=== PATIENT | male | born 1940 | race Hispanic/Latino ===

== ENCOUNTER 2020-05-15 11:24 | Observation (INO) | payer MEDICARE, MEDICAID ==
[2020-05-15 12:41] LABS: Bacteria/HPF None Seen HPF (None Seen); Bilirubin Negative (Negative); Blood, Urine 1+ (Negative); Clarity Clear (Clear); Glucose, Urine (Dipstick) Normal (Negative); Ketone, Urine Negative (Negative); Leukocyte Negative Leu/uL (Negative); Nitrite Negative (Negative); Protein, Urine (Dipstick) Negative (Neg-Trace); RBC/HPF 0-3 HPF (0-3); Specific Gravity, Urine 1.017 (1.002-1.036); Squamous Epithelial None Seen HPF (0-3); WBC/HPF 0-3 HPF (0-3); pH, Urine 6.5 (5.0-9.0)
[2020-05-15 12:44] LABS: #Lymphocytes 0.8 thou/uL (1.20-3.40); #Monocytes 0.3 thou/uL (0.11-0.59); #Neutrophils 2.9 thou/uL (1.40-6.50); %Basophils 0.2 % (0.0-1.0); %Eosinophils 0.5 % (0.0-10.0); %Lymphocytes 19.4 % (21.0-51.0); %Monocytes 7.9 % (0.0-10.0); %Neutrophils 71.9 % (42.0-75.0); Hemoglobin 16.8 g/dL (14.0-18.0); Mean Corpuscular HGB CONC 34.4 g/dL (32.0-36.0); Mean Corpuscular Hemoglobin 30.1 pg (27.0-31.0); Mean Corpuscular Volume 87.5 fL (78.0-98.0); Platelet Count 160 thou/uL (130-400); RBC Distribution Width 12.4 % (11.5-14.5); Red Blood Cell (RBC) Count 5.57 mill/uL (4.70-6.10)
[2020-05-15 12:51] LABS: INR-International Normal Ratio 1.1; Prothrombin Time 14.3 sec (12.0-14.7)
[2020-05-15 13:01] LABS: ALT (SGPT) 25 U/L (8-55); AST (SGOT) 18 U/L (5-34); Albumin 3.7 g/dL (3.4-4.8); Alkaline Phosphatase 97 U/L (40-110); Anion Gap 13 mmol/L (10-20); BUN (Urea Nitrogen) 10 mg/dL (8.4-25.7); Calc. Creatinine Clearance 0 mL/min (70-130); Calcium 8.4 mg/dL (7.8-10.44); Carbon Dioxide 20 mmol/L (23-31); Chloride 108 mmol/L (98-107); Estimated GFR-MDRD Greater than 90; Globulin 2.7 g/dL (2.4-3.5); Glucose 117 mg/dL (83-110); Lipase 17 U/L (8-78); Potassium 3.7 mmol/L (3.5-5.1); Protein, Total 6.4 g/dL (5.8-8.1); Sodium 137 mmol/L (136-145)
--- NOTE | 2020-05-15 13:20 | RAD ---
PORTABLE CHEST: HISTORY: Chest pain. FINDINGS: Heart size appears slightly enlarged. There are atherosclerotic changes of the aorta. Chronic lung changes are seen. No focal infiltrates. IMPRESSION: Chronic lung change. No acute process. POS: OFF
[2020-05-15] MEDS ORDERED: Iopamidol-370 76% 500 ML 1 ML ONE (14:02)
--- NOTE | 2020-05-15 14:59 | CT ---
CT ABDOMEN AND PELVIS PERFORMED WITH CONTRAST ENHANCEMENT: History: Abdominal pain for one week, left lower quadrant that radiates to the back. FINDINGS: There is some subsegmental atelectatic change in the left base. Some changes within the lingua which are probably chronic in nature. There are diffuse fatty changes to the liver. The spleen, pancreas, and gallbladder regions appear un remarkable. Right and left adrenal glands are normal in appearance. There is a 6.9 cm right renal cyst present. N o obstruction. There is no significant periaortic or mesenteric adenopathy. CT OF PELVIS PERFORMED WITH CONTRAST ENHANCEMENT: The appendix is difficult to visualize but appears unremarkable. No evidence of any diverticulitis or any definite diverticular disease. There is a paraumbilical hernia containing small bowel but no obs truction. Prostate is mildly prominent. No pelvic lymphadenopathy or mass. The spine shows mild arthritic change. The bones appear demineralized. IMPRESSION: 1. Fatty change of the liver. 2. Right renal cyst. 3. Small paraumbilical hernia, not associated with any obstruction. POS: OFF
[2020-05-15] MEDS ORDERED: Morphine 4 MG/ML VIAL ONE (15:03)
[2020-05-15] MEDS ORDERED: Aspirin Chewable 81 MG TAB ONE (15:04)
[2020-05-15] MEDS ORDERED: Ondansetron PF 4 MG/2 ML Vial ONE (15:04)
[2020-05-15] MEDS ORDERED: Senokot S 8.6-50 MG TAB PO PRN (15:39)
[2020-05-15] MEDS ORDERED: Acetaminophen 325 MG TAB PO PRN (15:39)
[2020-05-15] MEDS ORDERED: Nitroglycerin 0.4 MG TAB (25 Tab Bottle) SL PRN (16:34)
[2020-05-15 16:36] LABS: Cardiac Risk 4.8 (Less than 4.5)
--- NOTE | 2020-05-15 16:56 | HP ---
CHIEF COMPLAINT: Chest pain and abdominal pain. HISTORY OF PRESENT ILLNESS: A 79-year-old Bahraini-speaking only who is a poor historian with remote history of catheterization without stent placement, presenting with the chest pain. It is mostly on the left side. Overnight chest pain associated with some radiation to the neck and jaw. He also has some abdominal pain mostly on the left flank side. He has a remote history of stoma and unclear, he says that he has a cyst removed from that area a long time ago. He has some midabdominal scar. He had a cardiac cath roughly 6 years ago and no stent placed. His CT abdomen was quite unremarkable. He has a hernia that is reproducible and that has been taken care of by the ER physician. Otherwise, CT abdomen did not reveal any abnormality. His liver function test and lipase are in the normal range. The patient will be admitted for observation to rule out acute coronary syndrome and risk stratification with stress test. REVIEW OF SYSTEMS: Thirteen-point review of systems reviewed with the help of nurse who speaks [place]i. He does not have any recent fever, night sweats, or chills. No hemoptysis, hematemesis, dysuria, hematuria, or hematochezia. No headache or blurriness. He has currently no nausea or vomiting. His abdominal pain is mostly focused on the left flank side. SOCIAL HISTORY: Does not smoke or drink alcohol. FAMILY HISTORY: Noncontributory. MEDICATIONS: Not updated, but it appears he does not take any medications. PHYSICAL EXAMINATION: VITAL SIGNS: He is normotensive and afebrile. He is saturating in the upper 90s in room air. HEENT: Pupils are equal, round, and reactive to light. Anicteric. Mucous membranes are moist. CARDIOVASCULAR: Regular rate and rhythm without murmurs, rubs, or gallops. ABDOMEN: Protuberant, but soft and nontender. No rigidity. He has good abdominal sounds. He has a surgical scar in the mid abdominal area and scar on the left side, appears to be a stoma in the past. EXTREMITIES: Lower extremities without any pitting edema. No rash. LABORATORY DATA: CBC in the normal range except WBC of 4. INR is 1.1 creatinine. His LFTs are in the normal range. Lipase is 17. His BMP is also in the normal range. Troponin 0.01. Chest x-ray, negative for infiltrate. He also had a CT angio that was negative. EKG reviewed by me and it showed lateral T-wave inversions. IMPRESSION AND PLAN: This is a 79-year-old [place]i-speaking male with a history of coronary artery disease and cerebrovascular accident in the past, presenting with the followin. Chest pain. 2. Abdominal pain, mostly focused on the left flank side. 3. The patient will be ruled out for acute coronary syndrome. 4. Nuclear medicine stress test. Keep him overnight n.p.o. 5. We will follow up with a TSH, A1c, and lipid panel. 6. Aspirin and nitroglycerin p.r.n. 7. Left flank pain. UA shows no sign of any infection. He does have tamsulosin per the ER nurse and I will initiate that for now. 8. Rest of the management based on clinical course. His daughter is Roseanne at [phone]. Job ID: [id number] MTDD
[2020-05-15] MEDS ORDERED: Ketorolac Tromethamine 30 MG/ML VIAL ONE (17:27)
[2020-05-15 18:21] VITALS: BMI 29.9
[2020-05-16] MEDS ORDERED: Senokot S 8.6-50 MG TAB PO PRN (08:44)
[2020-05-16] MEDS ORDERED: FLU VACC QS2020-21(65YR UP)/PF 240 MCG/0.7 ML SYRINGE IM ONE (09:00)
[2020-05-16] MEDS ORDERED: Aspirin 81 mg Enteric Coated Tablet PO SCH ×2 (09:00)
[2020-05-16] MEDS ORDERED: Tamsulosin HCl 0.4 MG CAP PO SCH (09:00)
[2020-05-16] MEDS ORDERED: Temazepam 15 MG CAP PO PRN (11:33)
--- NOTE | 2020-05-16 11:33 | PDOC.HOSPP ---
- Subjective Encounter Date: 05/16/20 Encounter Time: 09:50 Subjective: Patient is Slovak-speaking only. 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 - Objective Vital Signs & Weight: Vital Signs (12 hours) Temp Pulse Resp BP Pulse Ox 05/16/20 07:40 97.8 F 58 L 16 150/69 H 94 L 05/16/20 04:00 97.9 F 60 16 128/62 95 05/16/20 03:00 97.9 F 60 16 128/62 95 Weight Weight 148 lb I&O: 05/15/20 05/16/20 05/17/20 06:59 06:59 06:59 Intake Total 480 Output Total 575 Balance -95 Result Diagrams: 05/15/20 12:25 05/15/20 12:25 Hospitalist ROS - Medication Medications: Active Medications Generic Name Dose Route Start Last Admin Trade Name Freq PRN Reason Stop Dose Admin Aspirin 81 mg 05/16/20 09:00 05/16/20 09:03 Aspirin 81 Mg Enteric Coated Tablet PO 81 mg DAILY GURVINDER Administration - Exam General Appearance: NAD, awake alert Eye: PERRL ENT: normocephalic atraumatic Neck: supple Heart: RRR Respiratory: CTAB, normal chest expansion Gastrointestinal: soft, normal bowel sounds Hosp A/P - Plan Chest pain with a history of coronary artery disease -trop x2 -ve; EKG with T wave inversions in the lateral leads. Stress pending - If negative then likely later in the day DC home. LDL 65 he can continue with his home statin. TSH in the normal range.
[2020-05-16] MEDS ORDERED: Nitroglycerin 0.4 MG TAB (25 Tab Bottle) SL PRN (11:45)
[2020-05-16] MEDS ORDERED: ADENOSINE 60 MG/20 ML VIAL ONE (12:42)
--- NOTE | 2020-05-16 15:00 | NM ---
Radionucleotide stress and rest myocardial perfusion scan with CT attenuation correction and SPECT im aging Left ventricular wall motion evaluation and ejection fraction HISTORY: Chest pain. FINDINGS: Adenosine protocol. Heterogeneous uptake of radiotracer throughout the left ventricular lars cardium. Moderate sized area of moderately to markedly diminished radiotracer uptake involving the septum on the stress and rest images. No significant reversibility. QGS analysis of gated SPECT images shows decreased motion and wall thickening of the septum. Left arielle tricular Ejection fraction calculated at 63%. IMPRESSION : Area of scar involving the septum. No evidence of ischemia. Preserved LVEF.
[2020-05-16 15:51] VITALS: BP 153/67; TEMP 97.6
[2020-05-16] MEDS ORDERED: Lubiprostone 8 MCG CAP PO SCH (17:00)
[2020-05-16] MEDS ORDERED: Atorvastatin Calcium 20 MG TAB PO SCH (21:00)
--- NOTE | 2020-05-17 07:51 | DIS ---
DATE OF ADMISSION: 05/15/2020 DATE OF DISCHARGE: 05/16/2020 DISCHARGE DIAGNOSES: 1. Noncardiac chest pain. 2. Benign prostatic hypertrophy. 3. History of cerebrovascular accident. 4. History of coronary artery disease. DISCHARGE MEDICATIONS: There is no change in his home medication regimen. Please see the history and physical and today's progress note for more details. Physical exam prior to discharge -He is afebrile blood pressure mildly elevated. Explained to him that he is going for stress test today. He is nontoxic-appearing during my evaluation. And tolerating his p.o. intake. No complaint of nausea. HOSPITAL COURSE: This is a 79-year-old male, Kazakh-speaking only with history of coronary artery disease and CVA without any residual symptoms, presented with chest pain. He is ruled out for acute coronary syndrome with serial troponin. His BNP is only 41.7. His TSH in the normal range. His LDL 65, and he takes Lipitor 20 mg at bedtime. He had undergone nuclear medicine stress test and that was negative for ischemia. The patient is hemodynamically stable and he will be discharged home today. Patient had abdominal pain near umbilical area. ER physician reduced his umbilical hernia. And she did not notice any acuity. CT scan also did not reveal any obstruction. His liver function test and lipase also in the normal range. Lactic acid was 1.9. He did not had elevated white count. DISCHARGE INSTRUCTIONS: Activity as tolerated. Healthy heart diet. Follow up with primary care physician in 1 week. TIME SPENT: Discharge time took less than 30 minutes. After discharge his daughter came by. He was complaining of chest pain at home. I suggested that if abdominal pain recur then he should follow-up with his primary care physician and perhaps outpatient surgery clinic referral through his primary care physician. Patient's daughter Sole expressed her understanding. Job ID: [id number] MTDD
[2020-05-17] MEDS ORDERED: Tamsulosin HCl 0.4 MG CAP PO SCH (09:00)
[2020-05-17] MEDS ORDERED: Finasteride 5 MG TAB PO SCH (09:00)
[2020-05-17] MEDS ORDERED: Oxybutynin 5 MG TAB PO SCH (09:00)
== END 2020-05-16 17:55 | disposition home or self-care (01) ==
LOC: ERS 11:24 → 2SW 18:03
PROVIDERS: ADMIT Internal Medicine; ATTEND Internal Medicine
DX: R07.89 Other chest pain (principal); I25.10 Atherosclerotic heart disease of native coronary artery without angina pectoris; N40.0 Benign prostatic hyperplasia without lower urinary tract symptoms; K76.0 Fatty (change of) liver, not elsewhere classified; K76.89 Other specified diseases of liver; N28.1 Cyst of kidney, acquired; K42.9 Umbilical hernia without obstruction or gangrene; F17.290 Nicotine dependence, other tobacco product, uncomplicated; Z86.73 Personal history of transient ischemic attack (TIA), and cerebral infarction without residual deficits
CPT/HCPCS: 71045; 74177; 78452; 80061; 83605; 83690; 83880; 84484 ×2; 85610; 87086; 90732; 93005; 93017; A9500; G0009; 36415; 51701; 80053; 81003; 81015; 84443; 85025; 90471; 96361; 96374; 96375; G0378; J0153; J1885; J2270; J2405; Q9967

== ENCOUNTER 2020-09-08 07:28 | Outpatient (CLI) | payer MEDICARE, MEDICAID ==
[2020-09-08 13:08] LABS: Anion Gap 17 mmol/L (10-20); BUN (Urea Nitrogen) 19 mg/dL (8.4-25.7); Calc. Creatinine Clearance 0 mL/min (70-130); Calcium 9.4 mg/dL (7.8-10.44); Carbon Dioxide 22 mmol/L (23-31); Chloride 106 mmol/L (98-107); Glucose 84 mg/dL (83-110); Potassium 4.4 mmol/L (3.5-5.1); Sodium 141 mmol/L (136-145)
[2020-09-08 13:18] LABS: Hemoglobin 17.8 g/dL (14.0-18.0); Mean Corpuscular HGB CONC 32.4 G/DL (32.0-36.0); Mean Corpuscular Hemoglobin 28.2 PG (27.0-33.0); Mean Corpuscular Volume 86.9 fl (80.0-100.0); Mean Platelet Volume 11.1 fl (7.4-10.4); Platelet Count 163 10x3/uL (130-400); RBC Distribution Width 13.8 % (11.5-14.5); Red Blood Cell (RBC) Count 6.32 10x6/uL (4.40-5.80); White Blood Cell (WBC) Count 5.7 10x3/uL (4.5-11.0)
[2020-09-08 13:32] LABS: INR-International Normal Ratio 1.1; PTT 31.3 sec (22.0-33.0); Prothrombin Time 11.5 sec (9.5-12.1)
[2020-09-08 13:37] LABS: Bilirubin Neg (Negative); Blood, Urine 25 (Negative); Glucose, Urine (Dipstick) Normal (Negative); Ketone, Urine Negative (Negative); Leukocyte Negative (Negative); Nitrite Negative (Negative); Protein, Urine (Dipstick) Negative (Neg-Trace); Urobilinogen Normal mg/dL (Less than 2)
[2020-09-08 13:58] LABS: Clarity Clear (Clear)
[2020-09-08 14:04] LABS: Bacteria/HPF None Seen HPF (None Seen); RBC/HPF 0-3 HPF (0-3); Squamous Epithelial None Seen HPF (0-3); WBC/HPF 0-3 HPF (0-3)
--- NOTE | 2020-09-08 17:12 | EKG ---
Test Reason : Blood Pressure : / mmHG Vent. Rate : 054 BPM Atrial Rate : 054 BPM P-R Int : 170 ms QRS Dur : 086 ms QT Int : 484 ms P-R-T Axes : 042 019 116 degrees QTc Int : 458 ms Sinus bradycardia Left ventricular hypertrophy with repolarization abnormality ST elevation consider inferior injury or acute infarct ACUTE MN / STEMI Consider right ventricular involvement in acute inferior infarct Abnormal ECG When compared with ECG of 15-MAY-2020 15:19, T wave inversion more evident in Lateral leads Confirmed by DR. Dong BUCHANAN ([id number]) on 09/08/2020 5:12:13 PM Referred By: CRISTINA Confirmed By:DR. Dong BUCHANAN
[2020-09-09 02:29] LABS: SARS-CoV-2 PCR by NAA Not Detected (NotDetected)
== END 2020-09-08 07:29 | disposition home or self-care (01) ==
LOC: LABBT 07:28
PROVIDERS: ATTEND Urology
DX: Z01.818 Encounter for other preprocedural examination (principal); N40.1 Benign prostatic hyperplasia with lower urinary tract symptoms; N39.41 Urge incontinence; Z20.822 Contact with and (suspected) exposure to COVID-19
CPT/HCPCS: 80048; 81001; 85027; 85610; 85730; 87086; 87635; 93005; 93010; U0003; U0005